=== PATIENT | female | born 1965 | race Caucasian/White ===

== ENCOUNTER 2016-09-05 11:12 | Outpatient (CLI) | payer MEDICAID | END 2016-09-05 11:13 | disposition home or self-care (01) | DX: N60.12 Diffuse cystic mastopathy of left breast (principal) ==

== ENCOUNTER 2016-10-13 22:08 | Emergency (ER) | payer MEDICAID ==
[2016-10-13 22:15] VITALS: BP 151/102
--- NOTE | 2016-10-13 22:21 | ED Physician Documentation ---
PD HPI SKIN - Stated complaint Stated Complaint: RASH - Chief complaint Chief Complaint: Heent - History obtained from History obtained from: Patient - History of Present Illness Timing - onset: Yesterday Timing - details: Gradual onset Location: Face Quality / character: Painful Associated symptoms: No: Fever Similar symptoms before: Has not had sx before Recently seen: Not recently seen - Additional information Additional information: c/o painful rash to left side of face since yesterday, called a medical advice hotline and was advised to go to ED. she denies eye pain or visual changes Review of Systems Constitutional: denies: Fever Eyes: reports: Reviewed and negative Skin: reports: Rash PD PAST MEDICAL HISTORY - Past Medical History Psych: Depression, Anxiety Musculoskeletal: Chronic back pain - Past Surgical History Past Surgical History: Yes - Present Medications Home Medications: Ambulatory Orders Medication Instructions Recorded Confirmed Clonazepam 2 mg PO TID PRN 11/27/15 10/13/16 FLUoxetine [PROzac] 30 mg PO DAILY 11/27/15 10/13/16 Hydrocodone/Acetaminophen [Vicodin 1 - 2 tab PO Q4HR PRN 11/27/15 10/13/16 5-300 mg Tablet] Acyclovir 800 mg PO 5XD #34 tablet 10/13/16 Cyclobenzaprine [Flexeril] 10 mg PO Q8HR 10/13/16 10/13/16 - Allergies Allergies/Adverse Reactions: Allergies Allergy/AdvReac Type Severity Reaction Status Date / Time No Known Drug Allergies Allergy Verified 10/13/16 22:15 - Social History Does the pt smoke?: Yes Smoking Status: Current every day smoker Does the pt drink ETOH?: Yes Does the pt have substance abuse?: No - Immunizations Immunizations are current?: Yes - POLST Patient has POLST: No PD ED PE NORMAL - Vitals Vital signs reviewed: Yes - General General: Alert and oriented X 3, No acute distress, Well developed/nourished - HEENT HEENT: PERRL, EOMI PD ED PE EXPANDED - Eyes Eyes: Normal eyelids, Nl conjunctiva/sclera - Derm Derm: Rash (clusters of erythematous vesicles in distribution of left CN V1) Results - Vitals Vitals: Vital Signs - 24 hr 10/13/16 22:11 Temperature 36.8 C Heart Rate 104 H Respiratory 20 Rate Blood Pressure 151/102 H O2 Saturation 98 Oxygen O2 Source Room air PD MEDICAL DECISION MAKING - ED course Complexity details: considered differential, d/w patient ED course: rash that is in CN V1, left (does not cross midline), strongly s/o herpes zoster Departure - Departure Disposition: 01 Home, Self Care Clinical Impression: Shingles Qualifiers: Herpes zoster complications: without complications Qualified Code(s): B02.9 - Zoster without complications Condition: Good Instructions: ED Shingles Follow-Up: Nayla Campbell ARNP [Primary Care Provider] - Prescriptions: Acyclovir 800 mg PO 5XD #34 tablet Discharge Date/Time: 10/13/16 22:58
[2016-10-13] MEDS ORDERED: ACYCLOVIR 200 MG CAPSULE PO STA (22:37)
[2016-10-13] MEDS ORDERED: ACYCLOVIR 200 MG CAPSULE PO ONE (22:51)
== END 2016-10-13 22:58 | disposition home or self-care (01) ==
LOC: ED 22:08
DX: B02.9 Zoster without complications (principal); F17.200 Nicotine dependence, unspecified, uncomplicated
CPT/HCPCS: 99283; A9270

== ENCOUNTER 2016-11-26 13:19 | Emergency (ER) | payer MEDICAID ==
--- NOTE | 2016-11-26 14:41 | ED Physician Documentation ---
PD HPI HEAD INJURY - Stated complaint Stated Complaint: HEAD INJ - Chief complaint Chief Complaint: Neuro - History obtained from History obtained from: Patient - History of Present Illness Mechanism of head injury: Fell Where head injury occurred: Home Timing - onset: Last night Location of injury: Right Quality of pain: Pain, Throbbing, Aching Associated symptoms: LOC, AMS (she does not remember the fall, but had blood on step and board was broken/rotted, so presume mechanical fall. She had felt okay earlier in the day. Today neighbor/friend found her on floor in laundry room, confused and with headache.) Symptoms worsen with: Palpation, Movement Contributing factors: No: Anticoagulated, Intoxicated Similar symptoms before: Has not had sx before Recently seen: Not recently seen Review of Systems Constitutional: denies: Fever Nose: denies: Rhinorrhea / runny nose, Congestion Throat: denies: Sore throat Cardiac: denies: Chest pain / pressure Respiratory: denies: Cough GI: reports: Nausea. denies: Abdominal Pain, Vomiting, Diarrhea Skin: reports: Laceration (s) (right parietal area without bleeding right now.) . denies: Rash, Lesions Musculoskeletal: reports: Neck pain. denies: Back pain, Extremity pain, Extremity swelling Neurologic: reports: Confused, Altered mental status (feels off balance today as well), Headache, Head injury. denies: Generalized weakness, Focal weakness, Numbness Endocrine: denies: Weight loss, Easy bruising / bleeding Immunocompromised: denies: Immunocompromised PD PAST MEDICAL HISTORY - Past Medical History Past Medical History: Yes Cardiovascular: None Neuro: None Endocrine/Autoimmune: None GI: None Psych: Depression, Anxiety Musculoskeletal: Chronic back pain - Past Surgical History Past Surgical History: Yes - Present Medications Home Medications: Ambulatory Orders Medication Instructions Recorded Confirmed Clonazepam 2 mg PO TID PRN 11/27/15 11/26/16 FLUoxetine [PROzac] 30 mg PO DAILY 11/27/15 11/26/16 Hydrocodone/Acetaminophen [Vicodin 1 - 2 tab PO Q4HR PRN 11/27/15 11/26/16 5-300 mg Tablet] Cyclobenzaprine [Flexeril] 10 mg PO Q8HR 10/13/16 11/26/16 - Allergies Allergies/Adverse Reactions: Allergies Allergy/AdvReac Type Severity Reaction Status Date / Time No Known Drug Allergies Allergy Verified 11/26/16 14:49 - Social History Does the pt smoke?: Yes Smoking Status: Current every day smoker Does the pt drink ETOH?: Yes Does the pt have substance abuse?: No - Family History Family history: denies: Cerebral aneurysm - Immunizations Immunizations are current?: Yes - POLST Patient has POLST: No PD ED PE NORMAL - Vitals Vital signs reviewed: Yes - General General: Alert and oriented X 3, Well developed/nourished - HEENT HEENT: PERRL, EOMI, Pharynx benign, Other (right parietal area with swelling and tenderness, 2 cm laceration with edges close together and no bleeding. ) - Neck Neck: Supple, no meningeal sign, No adenopathy, Other (some tenderness paracervical muscles. ) - Cardiac Cardiac: RRR, No murmur - Respiratory Respiratory: Clear bilaterally - Abdomen Abdomen: Soft, Non tender - Back Back: No CVA TTP, No spinal TTP - Derm Derm: Normal color, Warm and dry - Extremities Extremities: No tenderness to palpate, Normal ROM s pain - Neuro Neuro: Alert and oriented X 3, automatic buffing wheel former 2-12 intact, No motor deficit, No sensory deficit, Normal speech, Other - Psych Psych: Normal mood Results - Vitals Vitals: Vital Signs - 24 hr 11/26/16 13:31 Temperature 36.3 C L Heart Rate 113 H Respiratory 16 Rate Blood Pressure 152/90 H O2 Saturation 98 Oxygen O2 Source Room air - Rads (name of study) cervical spine Radiology: Prelim report reviewed (congenital fusion, no acute fractures) head CT Radiology: Prelim report reviewed (right parietal subarachnoid hemorrhage. ), Discussed with rads PD MEDICAL DECISION MAKING - ED course Complexity details: reviewed results, considered differential (concussion and will get CT to eval for bleeding/etc. ), d/w patient, d/w management consultant (Dr. Vang , trauma at [facility]) Departure - Departure Disposition: 02 Transfer Acute Care Hosp Clinical Impression: Subarachnoid hemorrhage, traumatic Qualifiers: Encounter type: initial encounter Loss of consciousness presence/duration: with LOC of unspecified duration Qualified Code(s): S06.6X9A - Traumatic subarachnoid hemorrhage with loss of consciousness of unspecified duration, initial encounter Concussion Qualifiers: Encounter type: initial encounter Loss of consciousness presence/duration: with LOC of unspecified duration Qualified Code(s): S06.0X9A - Concussion with loss of consciousness of unspecified duration, initial encounter Scalp laceration Qualifiers: Encounter type: initial encounter Qualified Code(s): S01.01XA - Laceration without foreign body of scalp, initial encounter Condition: Stable Record reviewed to determine appropriate education?: Yes
[2016-11-26] MEDS ORDERED: HYDROcod/ACETAM 5/325 MG TABLET PO STA (15:02)
[2016-11-26] MEDS ORDERED: ONDANSETRON ODT 4 MG TABLET TL STA (15:02)
[2016-11-26] MEDS ORDERED: HYDROcod/ACETAM 5/325 MG TABLET ONE (15:22)
[2016-11-26] MEDS ORDERED: ONDANSETRON ODT 4 MG TABLET ONE (15:22)
--- NOTE | 2016-11-26 15:43 | CT Preliminary Report ---
Exam: CT Cervical Spine W/O IMPRESSION: 1. Developmental fusion, C5-C6. 2. Mild degenerative disk disease at C4-C5. 3. Severe degenerative disk disease at C6-C7 with severe right foraminal narrowing. [facility] SITE ID: [id number]
--- NOTE | 2016-11-26 15:46 | CT Report ---
EXAM: CT CERVICAL SPINE WITHOUT CONTRAST DATE: 11/26/2016 03:21 PM HISTORY: Fall, with head/neck injury. COMPARISONS: None. TECHNIQUE: Thin-section axial images were acquired of the cervical spine without contrast. Post-proce ssing: Coronal and sagittal reformats. Other: None. In accordance with CT protocol optimization, one or more of the following dose reduction techniques w ere utilized for this exam: automated exposure control, adjustment of mA and/or KV based on patient s ize, or use of iterative reconstructive technique. FINDINGS: Alignment: Normal. No scoliosis or spondylolisthesis. Bones: Developmental fusion, C5-C6. No traumatic or destructive bone abnormalities. Interspace Levels/Facets: C1-C2: Unremarkable. C2-C3: Unremarkable. C3-C4: Unremarkable. C4-C5: Mild disk space narrowing with posterior disk/osteophyte protrusion.. C5-C6: Developmental fusion. C6-C7: Advanced disk space narrowing with endplate spurring and posterior disk/osteophyte protrusion. Severe right foraminal narrowing. C7-T1: Unremarkable. Musculature: Normal. No fatty atrophy. Other: The paravertebral and prevertebral soft tissues are normal. The lung apices are clear. IMPRESSION: 1. Developmental fusion, C5-C6. 2. Mild degenerative disk disease at C4-C5. 3. Severe degenerative disk disease at C6-C7 with severe right foraminal narrowing. [facility] Referring Provider Line: [phone] SITE ID: [id number]
--- NOTE | 2016-11-26 15:57 | CT Preliminary Report ---
Exam: CT Head W/O IMPRESSION: 1. Acute subarachnoid predominant right-sided hemorrhage extending into the sylvian fissure and noted in the right frontal and temporal regions. 2. No infarct or midline shift. [facility] The above critical findings were discussed with Ap by Dr. Cha Montano at 15:56 hrs on 11/26. SITE ID: [id number]
--- NOTE | 2016-11-26 16:09 | CT Report ---
EXAM: CT HEAD EXAM DATE: 11/26/2016 03:21 PM. CLINICAL HISTORY: Fall, head injury concussion yesterday. COMPARISON: None. TECHNIQUE: Multiaxial CT images were obtained from the foramen magnum to the vertex. IV contrast: Non e. Reformats: Coronal. In accordance with CT protocol optimization, one or more of the following dose reduction techniques w ere utilized for this exam: automated exposure control, adjustment of mA and/or KV based on patient s ize, or use of iterative reconstructive technique. FINDINGS: Parenchyma: No intraparenchymal hemorrhage. No evidence of mass, midline shift, or CT findings of inf arction. Jones-white differentiation is distinct. Extraaxial Spaces: Acute right-sided predominant subarachnoid hemorrhage extending into the sylvian f issure and noted in the right temporal and parietal regions. Ventricles: Normal in size and position. No intraventricular hemorrhage. Sinuses: Imaged paranasal sinuses, orbits, and mastoids show no significant abnormality. Bones: No evidence of fracture or calvarial defect. Other: Right temporal scalp swelling. IMPRESSION: 1. Acute subarachnoid predominant right-sided hemorrhage extending into the sylvian fissure and noted in the right frontal and temporal regions. 2. No infarct or midline shift. [facility] The above critical findings were discussed with Ap by Dr. Cha Montano at 15:56 hrs on 11/26. Referring Provider Line: [phone] SITE ID: [id number]
[2016-11-26] MEDS ORDERED: clonazePAM 0.5 MG TABLET PO STA (16:11)
[2016-11-26] MEDS ORDERED: clonazePAM 0.5 MG TABLET PO ONE (16:13)
[2016-11-26 17:24] VITALS: BP 132/84
== END 2016-11-26 17:26 | disposition short-term general hospital (02) ==
LOC: ED 13:19
DX: S06.6X9A Traumatic subarachnoid hemorrhage with loss of consciousness of unspecified duration, initial encounter (principal); S01.01XA Laceration without foreign body of scalp, initial encounter; W18.30XA Fall on same level, unspecified, initial encounter; Y92.007 Garden or yard of unspecified non-institutional (private) residence as the place of occurrence of the external cause; F17.200 Nicotine dependence, unspecified, uncomplicated
CPT/HCPCS: 70450; 72125; 99284; 99285; A9270; Q0162

== ENCOUNTER 2016-11-26 17:25 | Outpatient (CLI) | payer MEDICAID | END 2016-11-26 17:26 | disposition short-term general hospital (02) | LOC: EMS 17:25 | PROVIDERS: ATTEND Surgery | DX: S06.6X9A Traumatic subarachnoid hemorrhage with loss of consciousness of unspecified duration, initial encounter (principal) | CPT/HCPCS: A0425; A0426 ==

== ENCOUNTER 2016-12-10 12:30 | Outpatient (CLI) | payer MEDICAID ==
[2016-12-10 18:46] LABS: HCG UR QUAL NEGATIVE
== END 2016-12-10 12:31 | disposition home or self-care (01) ==
LOC: LAB.R 12:30
PROVIDERS: ATTEND Nurse Practitioner Family
DX: R14.0 Abdominal distension (gaseous) (principal); N92.6 Irregular menstruation, unspecified
CPT/HCPCS: 81025

== ENCOUNTER 2016-12-11 15:21 | Outpatient (CLI) | payer MEDICAID ==
--- NOTE | 2016-12-12 09:24 | XRAY Report ---
THREE-VIEW LEFT FOOT: 12/11/2016 CLINICAL INDICATION: Fall, pain. FINDINGS: AP, lateral, oblique views of the left foot demonstrate no evidence of acute fracture. Th e joint spaces are preserved. A bone island is incidentally noted in the middle phalanx of the 2nd t oe. No radiopaque foreign body is seen in the soft tissues. IMPRESSION: NO EVIDENCE OF FRACTURE. JOB #: [id number] EXT JOB #:[id number]
== END 2016-12-11 15:22 | disposition home or self-care (01) ==
LOC: DI.S 15:21
PROVIDERS: ATTEND Nurse Practitioner Family
DX: M79.672 Pain in left foot (principal); W10.8XXD Fall (on) (from) other stairs and steps, subsequent encounter

== ENCOUNTER 2016-12-12 12:47 | Outpatient (CLI) | payer MEDICAID ==
[2016-12-12 17:43] LABS: HCG UR QUAL NEGATIVE
[2016-12-12 18:02] LABS: BASOPHILS # (AUTO) 0.1 10^3/uL (0.0-0.1); BASOPHILS % (AUTO) 0.7 %; EOSINOPHILS # (AUTO) 0.3 10^3/uL (0.0-0.7); EOSINOPHILS % (AUTO) 3.4 %; HCT - HEMATOCRIT 38.7 % (37.0-47.0); HGB - HEMOGLOBIN 12.8 g/dL (12.0-16.0); LYMPHOCYTES # (AUTO) 1.3 10^3/uL (1.5-3.5); LYMPHOCYTES % (AUTO) 15.1 %; MEAN CORPUSCULAR HEMOGLOBIN 28.9 pg (27.0-31.0); MEAN CORPUSCULAR HGB CONC 33.1 g/dL (32.0-36.0); MEAN CORPUSCULAR VOLUME 87.3 fL (81.0-99.0); MEAN PLATELET VOLUME 8.5 fL (7.9-10.8); MONOCYTES # (AUTO) 0.7 10^3/uL (0.0-1.0); MONOCYTES % (AUTO) 7.8 %; NEUTROPHILS # (AUTO) 6.4 10^3/uL (1.5-6.6); RED BLOOD COUNT 4.43 10^6/uL (4.20-5.40); RED CELL DISTRIBUTION WIDTH 14.2 % (12.0-15.0); UNCORRECTED WHITE BLOOD COUNT 8.8 x10^3/uL; WHITE BLOOD COUNT 8.8 x10^3/uL (4.8-10.8)
[2016-12-12 18:17] LABS: ALBUMIN/GLOBULIN RATIO 1.1 (1.0-2.2); BILIRUBIN,TOTAL 0.5 mg/dL (0.2-1.0); CALCIUM 9.4 mg/dL (8.5-10.3); CREATININE 0.9 mg/dL (0.4-1.0); POTASSIUM 3.8 mmol/L (3.5-5.0); TOTAL PROTEIN 7.4 g/dL (6.7-8.2)
== END 2016-12-12 12:48 | disposition home or self-care (01) ==
LOC: LAB.F 12:47
PROVIDERS: ATTEND Nurse Practitioner Family
DX: R14.0 Abdominal distension (gaseous) (principal)
CPT/HCPCS: 36415; 80053; 81025; 85025

== ENCOUNTER 2016-12-15 20:55 | Emergency (ER) | payer MEDICAID ==
--- NOTE | 2016-12-15 22:47 | ED Physician Documentation ---
History of Present Illness - Stated complaint Stated Complaint: WEAKNESS,HEADACHE - Chief complaint Chief Complaint: Neuro - History obtained from History obtained from: Patient, Family - History of Present Illness Timing: Yesterday - Additonal information Additional information: Patient is a 51 year old female with a history of chronic pain, headachs and a traumatic sah who is presenting to the emergency department for headache and nausea. Patient states that it has been going on for the last few days so she decided to come get checked out. patient did state that she took two percocets , flexeril and clonazapam today. Review of Systems Constitutional: denies: Fever, Chills, Myalgias Eyes: denies: Loss of vision, Decreased vision Ears: denies: Ear pain, Drainage/discharge Nose: denies: Rhinorrhea / runny nose, Congestion Throat: denies: Dental pain / toothache, Sore throat Cardiac: denies: Chest pain / pressure Respiratory: denies: Cough GI: reports: Nausea. denies: Vomiting, Constipation, Diarrhea : denies: Dysuria, Frequency, Hesitancy Skin: denies: Rash, Lesions Musculoskeletal: denies: Neck pain, Back pain, Extremity pain, Joint pain Neurologic: reports: Confused, Headache. denies: Generalized weakness, Numbness , Difficulty speaking, Syncope, Seizure Psychiatric: denies: Depressed, Suicidal Immunocompromised: denies: Immunocompromised PD PAST MEDICAL HISTORY - Past Medical History Cardiovascular: None Neuro: None Endocrine/Autoimmune: None GI: None Psych: Depression, Anxiety Musculoskeletal: Chronic back pain - Past Surgical History Past Surgical History: Yes - Present Medications Home Medications: Ambulatory Orders Medication Instructions Recorded Confirmed Clonazepam 2 mg PO TID PRN 11/27/15 11/26/16 FLUoxetine [PROzac] 30 mg PO DAILY 11/27/15 11/26/16 Hydrocodone/Acetaminophen [Vicodin 1 - 2 tab PO Q4HR PRN 11/27/15 11/26/16 5-300 mg Tablet] Cyclobenzaprine [Flexeril] 10 mg PO Q8HR 10/13/16 11/26/16 Meclizine [Antivert] 12.5 mg PO Q6H #20 tablet 12/15/16 Ondansetron Odt [Zofran] 4 mg TL Q6H PRN #14 tablet 12/15/16 - Allergies Allergies/Adverse Reactions: Allergies Allergy/AdvReac Type Severity Reaction Status Date / Time No Known Drug Allergies Allergy Verified 12/15/16 21:06 - Social History Does the pt smoke?: Yes Smoking Status: Current every day smoker Does the pt drink ETOH?: Yes Does the pt have substance abuse?: No - Immunizations Immunizations are current?: Yes - POLST Patient has POLST: No PD ED PE NORMAL - Vitals Vital signs reviewed: Yes - General General: Alert and oriented X 3, No acute distress, Well developed/nourished - HEENT HEENT: Atraumatic, PERRL, Pharynx benign - Neck Neck: Supple, no meningeal sign, No bony TTP - Cardiac Cardiac: RRR, No murmur - Respiratory Respiratory: No respiratory distress, Clear bilaterally - Abdomen Abdomen: Soft, Non tender, Non distended - Derm Derm: Normal color, Warm and dry, No rash - Extremities Extremities: No deformity, No tenderness to palpate, Normal ROM s pain - Neuro Neuro: Alert and oriented X 3, transportation museum helper 2-12 intact, No motor deficit, No sensory deficit, Normal speech - Psych Psych: Normal mood, Normal affect PD ED PE EXPANDED - HEENT HEENT: Dry mucous membranes Results - Vitals Vitals: Vital Signs - 24 hr 12/15/16 12/16/16 21:06 00:26 Temperature 36.2 C L Heart Rate 98 93 Respiratory 16 16 Rate Blood Pressure 134/93 H 120/72 O2 Saturation 99 97 Oxygen O2 Source Room air - Labs Labs: Laboratory Tests 12/15/16 12/15/16 12/15/16 23:05 23:33 23:33 WBC 9.5 RBC 4.52 Hgb 13.0 Hct 38.8 MCV 85.7 MCH 28.8 MCHC 33.5 RDW 14.2 Plt Count 316 MPV 8.4 Neut # 7.0 H Lymph # 1.3 L Snyder # 1.0 Eos # 0.2 Baso # 0.1 Absolute Nucleated RBC 0.00 Nucleated RBCs 0.0 Sodium 138 Potassium 3.5 Chloride 101 Carbon Dioxide 27 Anion Gap 10.0 BUN 26 H Creatinine 1.0 Estimated GFR (MDRD) 58 L Glucose 111 H Calcium 9.7 Total Bilirubin 0.3 AST 22 ALT 32 Alkaline Phosphatase 73 Total Protein 8.1 Albumin 4.4 Globulin 3.7 Albumin/Globulin Ratio 1.2 Lipase 31 TSH 2.48 Urine Color Urine Clarity Urine pH Ur Specific Warren Urine Protein Urine Glucose (UA) Urine Ketones Urine Occult Blood Urine Nitrite Urine Bilirubin Urine Urobilinogen Ur Leukocyte Esterase Urine RBC Urine WBC Ur Squamous Epith Cells Urine Bacteria Ur Microscopic Review Urine Culture Comments Urine Opiates Screen Ur Oxycodone Screen Urine Methadone Screen Ur Propoxyphene Screen Ur Barbiturates Screen Ur Tricyclics Screen Ur Phencyclidine Scrn Ur Amphetamine Screen U Methamphetamines Scrn U Benzodiazepines Scrn Urine Cocaine Screen U Cannabinoids Screen 12/16/16 00:13 WBC RBC Hgb Hct MCV MCH MCHC RDW Plt Count MPV Neut # Lymph # Snyder # Eos # Baso # Absolute Nucleated RBC Nucleated RBCs Sodium Potassium Chloride Carbon Dioxide Anion Gap BUN Creatinine Estimated GFR (MDRD) Glucose Calcium Total Bilirubin AST ALT Alkaline Phosphatase Total Protein Albumin Globulin Albumin/Globulin Ratio Lipase TSH Urine Color YELLOW Urine Clarity CLEAR Urine pH 6.0 Ur Specific Warren 1.025 Urine Protein NEGATIVE Urine Glucose (UA) NEGATIVE Urine Ketones NEGATIVE Urine Occult Blood SMALL H Urine Nitrite NEGATIVE Urine Bilirubin NEGATIVE Urine Urobilinogen 0.2 (NORMAL) Ur Leukocyte Esterase NEGATIVE Urine RBC 0-5 Urine WBC 0-3 Ur Squamous Epith Cells MANY Squamous H Urine Bacteria None Seen Ur Microscopic Review INDICATED Urine Culture Comments NOT INDICATED Urine Opiates Screen POSITIVE H Ur Oxycodone Screen NEGATIVE Urine Methadone Screen NEGATIVE Ur Propoxyphene Screen NEGATIVE Ur Barbiturates Screen NEGATIVE Ur Tricyclics Screen POSITIVE H Ur Phencyclidine Scrn NEGATIVE Ur Amphetamine Screen NEGATIVE U Methamphetamines Scrn NEGATIVE U Benzodiazepines Scrn POSITIVE H Urine Cocaine Screen NEGATIVE U Cannabinoids Screen NEGATIVE - Rads (name of study) ct head Radiology: Final report received (no acute abnormality) PD MEDICAL DECISION MAKING - ED course Complexity details: reviewed old records, reviewed results, re-evaluated patient , considered differential, d/w patient ED course: Patient was seen and examined at bedside. patient had dry mucus membranes, likely secondary to the diuretic. IV access was gained, labs were drawn and patient was treated with a fluid bolus. CT was ordered due to the previous bleed and headache. When all of the patient's diagnostics came back patient had minimal bump in GFR but had received fluids. patient required no further work up at this time and was stable for discharge with outpatient follow up. Departure - Departure Disposition: 01 Home, Self Care Clinical Impression: Headache Condition: Good Instructions: ED Cephalgia Unspecified Prescriptions: Meclizine [Antivert] 12.5 mg PO Q6H #20 tablet Ondansetron Odt [Zofran] 4 mg TL Q6H PRN #14 tablet PRN Reason: Nausea / Vomiting Comments: Your diagnostics today were within normal limits. You were a little dehydrated from the diuretic and you should decrease the frequency of taking it once every two or three days. You should follow up with your pmd if the swelling returns and to follow up on your pain management. You may return to the emergency department at any time for new, worsening or uncontrollable symptoms.
[2016-12-15] MEDS ORDERED: SODIUM CHLORIDE FLUSH 0.9% 10 ML SYRINGE IVP ONE (22:56)
[2016-12-15] MEDS: SODIUM CHLORIDE 0.9% 1,000 ML IV ONE (23:21)
[2016-12-15 23:24] LABS: BASOPHILS # (AUTO) 0.1 10^3/uL (0.0-0.1); BASOPHILS % (AUTO) 0.8 %; EOSINOPHILS # (AUTO) 0.2 10^3/uL (0.0-0.7); EOSINOPHILS % (AUTO) 1.8 %; HCT - HEMATOCRIT 38.8 % (37.0-47.0); LYMPHOCYTES # (AUTO) 1.3 10^3/uL (1.5-3.5); LYMPHOCYTES % (AUTO) 13.8 %; MEAN CORPUSCULAR HEMOGLOBIN 28.8 pg (27.0-31.0); MEAN CORPUSCULAR HGB CONC 33.5 g/dL (32.0-36.0); MEAN CORPUSCULAR VOLUME 85.7 fL (81.0-99.0); MEAN PLATELET VOLUME 8.4 fL (7.9-10.8); MONOCYTES % (AUTO) 10.6 %; RED BLOOD COUNT 4.52 10^6/uL (4.20-5.40); RED CELL DISTRIBUTION WIDTH 14.2 % (12.0-15.0); UNCORRECTED WHITE BLOOD COUNT 9.5 x10^3/uL; WHITE BLOOD COUNT 9.5 x10^3/uL (4.8-10.8)
--- NOTE | 2016-12-15 23:38 | CT Preliminary Report ---
Exam: CT Head W/O IMPRESSION: No acute or focal intracranial abnormality. [facility] SITE ID: [id number]
--- NOTE | 2016-12-15 23:40 | CT Report ---
EXAM: CT HEAD EXAM DATE: 12/15/2016 11:22 PM. CLINICAL HISTORY: History of bleed, headaches. COMPARISON: None. TECHNIQUE: Multiaxial CT images were obtained from the foramen magnum to the vertex. IV contrast: Non e. Reformats: Coronal. In accordance with CT protocol optimization, one or more of the following dose reduction techniques w ere utilized for this exam: automated exposure control, adjustment of mA and/or KV based on patient s ize, or use of iterative reconstructive technique. FINDINGS: Parenchyma: No intraparenchymal hemorrhage. No evidence of mass, midline shift, or CT findings of inf arction. Jones-white differentiation is distinct. Extraaxial Spaces: Normal for age. No subdural or epidural collections identified. Ventricles: Normal in size and position. Sinuses: Imaged paranasal sinuses, orbits, and mastoids show no significant abnormality. Bones: No evidence of fracture or calvarial defect. Other: None. IMPRESSION: No acute or focal intracranial abnormality. [facility] Referring Provider Line: [phone] SITE ID: [id number]
[2016-12-15 23:51] LABS: ALBUMIN/GLOBULIN RATIO 1.2 (1.0-2.2); BILIRUBIN,TOTAL 0.3 mg/dL (0.2-1.0); CALCIUM 9.7 mg/dL (8.5-10.3); POTASSIUM 3.5 mmol/L (3.5-5.0); TOTAL PROTEIN 8.1 g/dL (6.7-8.2)
[2016-12-16 00:26] VITALS: BP 120/72
[2016-12-16 00:31] LABS: BILIRUBIN,URINE NEGATIVE (NEGATIVE)
[2016-12-16 00:44] LABS: UA w/ MICROSCOPIC CHARGE YES; UR CULTURE IF IND NOT INDICATED; WBC,URINE 0-3 /HPF (0-5)
== END 2016-12-16 01:19 | disposition home or self-care (01) ==
LOC: ED 20:55
DX: R51 Headache (principal); R53.1 Weakness; R11.0 Nausea; F17.200 Nicotine dependence, unspecified, uncomplicated
CPT/HCPCS: 36415; 70450; 80053; 80306; 81001; 81003; 83690; 84443; 85025; 87086; 99283

== ENCOUNTER 2017-01-24 10:39 | Outpatient (CLI) | payer MEDICAID | END 2017-01-24 10:40 | disposition home or self-care (01) | LOC: LAB.R 10:39 | PROVIDERS: ATTEND Nurse Practitioner Family | DX: J02.9 Acute pharyngitis, unspecified (principal) | CPT/HCPCS: 87070 ==

== ENCOUNTER 2017-12-16 14:13 | Outpatient (CLI) | payer MEDICAID ==
[2017-12-16 17:50] LABS: BASOPHILS # (AUTO) 0.1 10^3/uL (0.0-0.1); BASOPHILS % (AUTO) 0.8 %; EOSINOPHILS # (AUTO) 0.2 10^3/uL (0.0-0.7); EOSINOPHILS % (AUTO) 2.7 %; HGB - HEMOGLOBIN 14.2 g/dL (12.0-16.0); LYMPHOCYTES # (AUTO) 1.4 10^3/uL (1.5-3.5); LYMPHOCYTES % (AUTO) 18.4 %; MEAN CORPUSCULAR HEMOGLOBIN 29.6 pg (27.0-31.0); MEAN CORPUSCULAR HGB CONC 33.7 g/dL (32.0-36.0); MEAN CORPUSCULAR VOLUME 87.9 fL (81.0-99.0); MEAN PLATELET VOLUME 9.4 fL (7.9-10.8); MONOCYTES # (AUTO) 0.6 10^3/uL (0.0-1.0); MONOCYTES % (AUTO) 8.2 %; NEUTROPHILS # (AUTO) 5.2 10^3/uL (1.5-6.6); NEUTROPHILS % (AUTO) 69.9 %; PLT - PLATELET COUNT 265 10^3/uL (130-450); RED CELL DISTRIBUTION WIDTH 14.5 % (12.0-15.0); WHITE BLOOD COUNT 7.5 x10^3/uL (4.8-10.8)
[2017-12-16 19:05] LABS: ALBUMIN 4.4 g/dL (3.2-5.5); ALBUMIN/GLOBULIN RATIO 1.3 (1.0-2.2); BILIRUBIN,TOTAL 0.7 mg/dL (0.2-1.0); CALCIUM 8.5 mg/dL (8.5-10.3); CREATININE 0.8 mg/dL (0.4-1.0); TOTAL PROTEIN 7.9 g/dL (6.7-8.2)
== END 2017-12-16 14:14 | disposition home or self-care (01) ==
LOC: LAB.F 14:13
PROVIDERS: ATTEND Nurse Practitioner Family
DX: R07.89 Other chest pain (principal); R53.83 Other fatigue
CPT/HCPCS: 36415; 80050; 83721

== ENCOUNTER 2018-01-23 12:28 | Outpatient (CLI) | payer MEDICAID ==
[2018-01-23] MEDS ORDERED: REGADENOSON 0.4 MG/5 ML SYRINGE IVP ONE ×2 (15:44→18:40)
--- NOTE | 2018-01-23 17:57 | CARDIAC PROCEDURE NOTE ---
DATE OF SERVICE: 01/23/2018 Physician: Jodie Velazquez MD INDICATIONS FOR TEST: Chest pain, dyspnea on exertion. CORONARY RISK FACTORS: Hypertension, family history of heart disease, smoker, postmenopausal status. After signing informed consent, the patient underwent a Lexiscan pharmaceutical stress test with myocardial perfusion imaging. BASELINE EKG: Normal sinus rhythm, ST segment scooping depressions in leads II, III and aVF. Lexiscan infused per protocol. The patient had no symptoms or side effects. Resting heart rate 86, peak heart rate 102. Resting blood pressure 128/84, peak blood pressure 146/80. EKG at [facility]: No new EKG changes. SUMMARY: Indeterminate for ischemia by EKG due to pharmaceutical stress test and baseline abnormal EKG. Nuclear images reported separately. cc: VIV Anaya TD: 01/23/2018 16:23 MTDD
--- NOTE | 2018-01-24 15:24 | Nuclear Medicine Report ---
Reason: CHEST PAIN, FREEMAN Procedure Date: 01/23/2018 Accession Number: [id number] / [id number] Procedure: NM - Myocardial Perfusion STR/RST CPT Code: FULL RESULT: EXAM: SINGLE-ISOTOPE PHARMACOLOGICAL STRESS TEST WITH REGADENOSON. SINGLE-ISOTOPE AND ONE-DAY REST/STRESS MYOCARDIAL PERFUSION SCANS WITH TOMOGRAPHIC IMAGING, QUANTITATIVE ANALYSIS, WALL MOTION ANALYSIS AND CALCULATION OF EJECTION FRACTION. EXAM DATE: 01/23/2018 01:49 PM. CLINICAL HISTORY: CHEST PAIN, FREEMAN. COMPARISON: None. TECHNIQUE: After the intravenous administration of 9.4 mCi of Tc-99m sestamibi, a rest myocardial perfusion scan was done with tomography. Motion correction was applied when appropriate. After an appropriate delay, pharmacological stress was performed with the infusion of 0.4 mg regadenoson per protocol. According to protocol, 36.1 mCi of Tc-99m sestamibi was injected for stress myocardial perfusion scan. Motion correction was applied when appropriate. Gated tomographic images were obtained for wall motion analysis and computation of left ventricular ejection fraction. FINDINGS: Perfusion images: Left ventricular chamber size is normal at rest and unchanged at stress. There is a moderate size region of mildly to moderately reduced uptake involving the apical half of the anterior wall which is similar on stress and rest images without focal wall motion abnormality on gated images, most likely breast attenuation artifact. Otherwise no convincing fixed perfusion deficits. No convincing reversible perfusion deficits. Gated images: No focal wall motion abnormality. Calculated left ventricular EDV 72 mL, ESV 16 mL. The left ventricular ejection fraction is estimated at 77% (normal > 50%). IMPRESSION: 1. No convincing reversible perfusion deficits to indicate stress-induced ischemia. 2. No convincing fixed perfusion deficits. Probable apical half anterior wall breast attenuation artifact. 3. Left ventricular ejection fraction of 77% (normal > 50%). 4. No focal wall motion abnormalities. [facility]
== END 2018-01-23 12:29 | disposition home or self-care (01) ==
LOC: DI 12:28
PROVIDERS: ATTEND Nurse Practitioner Family
DX: R07.89 Other chest pain (principal); R06.09 Other forms of dyspnea
CPT/HCPCS: 78452; 93017; A9500; J2785

== ENCOUNTER 2018-05-06 12:54 | Outpatient (CLI) | payer MEDICAID | END 2018-05-06 12:55 | disposition home or self-care (01) | LOC: DI 12:54 | PROVIDERS: ATTEND Nurse Practitioner | DX: R00.2 Palpitations (principal); R06.09 Other forms of dyspnea | CPT/HCPCS: 93306 ==

== ENCOUNTER 2018-05-29 12:53 | Outpatient (CLI) | payer MEDICAID ==
[2018-05-29 18:33] LABS: BASOPHILS # (AUTO) 0.1 10^3/uL (0.0-0.1); BASOPHILS % (AUTO) 0.8 %; EOSINOPHILS # (AUTO) 0.2 10^3/uL (0.0-0.7); EOSINOPHILS % (AUTO) 2.4 %; HGB - HEMOGLOBIN 14.4 g/dL (12.0-16.0); LYMPHOCYTES # (AUTO) 1.4 10^3/uL (1.5-3.5); LYMPHOCYTES % (AUTO) 19.4 %; MEAN CORPUSCULAR HEMOGLOBIN 29.2 pg (27.0-31.0); MEAN CORPUSCULAR HGB CONC 32.8 g/dL (32.0-36.0); MEAN CORPUSCULAR VOLUME 89.1 fL (81.0-99.0); MEAN PLATELET VOLUME 9.4 fL (7.9-10.8); MONOCYTES # (AUTO) 0.5 10^3/uL (0.0-1.0); MONOCYTES % (AUTO) 7.1 %; NEUTROPHILS # (AUTO) 5.2 10^3/uL (1.5-6.6); NEUTROPHILS % (AUTO) 70.3 %; PLT - PLATELET COUNT 297 10^3/uL (130-450); RED BLOOD COUNT 4.92 10^6/uL (4.20-5.40); RED CELL DISTRIBUTION WIDTH 13.9 % (12.0-15.0); WHITE BLOOD COUNT 7.4 x10^3/uL (4.8-10.8)
[2018-05-29 20:19] LABS: ALBUMIN 4.7 g/dL (3.2-5.5); ALBUMIN/GLOBULIN RATIO 1.3 (1.0-2.2); ALKALINE PHOSPHATASE 68 IU/L (42-121); ALT ALANINE AMINOTRANSFERASE 49 IU/L (10-60); AST ASPARTATE AMINOTRANSFERASE 29 IU/L (10-42); BILIRUBIN,TOTAL 0.5 mg/dL (0.2-1.0); BUN - BLOOD UREA NITROGEN 19 mg/dL (6-20); CALCIUM 9.5 mg/dL (8.5-10.3); CARBON DIOXIDE - CO2 23 mmol/L (21-32); CHLORIDE 105 mmol/L (101-111); CHOL/HDL RATIO 3.4 (<4.4); CHOLESTEROL 257 mg/dL; CREATININE 0.9 mg/dL (0.4-1.0); GFR - MDRD 66 (>89); GLUCOSE 108 mg/dL (70-100); HDL CHOLESTEROL 75 mg/dL; LDL CHOLESTEROL,CALCULATED 162 mg/dL; LDL/HDL RATIO 2.2 (<4.4); SODIUM 137 mmol/L (135-145); TOTAL PROTEIN 8.3 g/dL (6.7-8.2); VLDL CHOLESTEROL 20 mg/dL
== END 2018-05-29 12:54 | disposition home or self-care (01) ==
LOC: LAB.F 12:53
PROVIDERS: ATTEND Nurse Practitioner Family
DX: F32.9 Major depressive disorder, single episode, unspecified (principal); F41.9 Anxiety disorder, unspecified; Z13.6 Encounter for screening for cardiovascular disorders; R00.2 Palpitations
CPT/HCPCS: 36415; 80050; 80061; 83721

== ENCOUNTER 2018-07-22 14:30 | Outpatient (CLI) | payer MEDICAID ==
[2018-07-22 18:23] LABS: HB2 TOTAL 15.1 g/dL; HEMOGLOBIN A1C 0.63 g/dL
== END 2018-07-22 14:31 | disposition home or self-care (01) ==
LOC: LAB.F 14:30
PROVIDERS: ATTEND Nurse Practitioner
DX: R73.9 Hyperglycemia, unspecified (principal); Z83.3 Family history of diabetes mellitus
CPT/HCPCS: 36415; 83036

== ENCOUNTER 2019-05-28 13:34 | Outpatient (CLI) | payer MEDICAID ==
[2019-05-28 18:27] LABS: BASOPHILS # (AUTO) 0.1 10^3/uL (0.0-0.1); BASOPHILS % (AUTO) 1.1 %; EOSINOPHILS # (AUTO) 0.2 10^3/uL (0.0-0.7); EOSINOPHILS % (AUTO) 3.1 %; HGB - HEMOGLOBIN 14.2 g/dL (12.0-16.0); LYMPHOCYTES # (AUTO) 1.4 10^3/uL (1.5-3.5); LYMPHOCYTES % (AUTO) 23.6 %; MEAN CORPUSCULAR HEMOGLOBIN 29.8 pg (27.0-31.0); MEAN CORPUSCULAR VOLUME 93.1 fL (81.0-99.0); MEAN PLATELET VOLUME 11.1 fL (7.9-10.8); MONOCYTES # (AUTO) 0.6 10^3/uL (0.0-1.0); MONOCYTES % (AUTO) 9.7 %; NEUTROPHILS # (AUTO) 3.8 10^3/uL (1.5-6.6); NEUTROPHILS % (AUTO) 61.8 %; PLT - PLATELET COUNT 279 10^3/uL (130-450); RED BLOOD COUNT 4.77 10^6/uL (4.20-5.40); RED CELL DISTRIBUTION WIDTH 13.2 % (12.0-15.0); WHITE BLOOD COUNT 6.1 x10^3/uL (4.8-10.8)
[2019-05-28 18:29] LABS: HB2 TOTAL 14.4 g/dL; HEMOGLOBIN A1C 0.55 g/dL; HEMOGLOBIN A1C % 5.6 % (4.6-6.2)
[2019-05-28 18:45] LABS: ALBUMIN 4.6 g/dL (3.2-5.5); ALBUMIN/GLOBULIN RATIO 1.4 (1.0-2.2); ALKALINE PHOSPHATASE 84 IU/L (42-121); ALT ALANINE AMINOTRANSFERASE 76 IU/L (10-60); AST ASPARTATE AMINOTRANSFERASE 49 IU/L (10-42); BILIRUBIN,TOTAL 0.5 mg/dL (0.2-1.0); BUN - BLOOD UREA NITROGEN 26 mg/dL (6-20); CALCIUM 9.5 mg/dL (8.5-10.3); CARBON DIOXIDE - CO2 22 mmol/L (21-32); CHLORIDE 108 mmol/L (101-111); CHOL/HDL RATIO 4.9 (<4.4); CHOLESTEROL 341 mg/dL; CREATININE 1.1 mg/dL (0.4-1.0); GFR - MDRD 52 (>89); GLUCOSE 120 mg/dL (70-100); HDL CHOLESTEROL 69 mg/dL; LDL CHOLESTEROL,CALCULATED 240 mg/dL; LDL/HDL RATIO 3.5 (<4.4); SODIUM 140 mmol/L (135-145); VLDL CHOLESTEROL 32 mg/dL
== END 2019-05-28 13:35 | disposition home or self-care (01) ==
LOC: LAB.S 13:34
PROVIDERS: ATTEND Physician Assistant Medical
DX: E78.2 Mixed hyperlipidemia (principal); Z51.81 Encounter for therapeutic drug level monitoring; R73.01 Impaired fasting glucose; Z79.899 Other long term (current) drug therapy
CPT/HCPCS: 36415; 80053; 80061; 83036; 83721; 85025

== ENCOUNTER 2019-10-19 08:00 | Outpatient (CLI) | payer MEDICAID ==
--- NOTE | 2019-10-19 18:18 | XRAY Report ---
PROCEDURE: Shoulder 3 View LT INDICATIONS: FROZEN LEFT SHOULDER TECHNIQUE: 3 views of the shoulder were acquired. COMPARISON: None. FINDINGS: Bones: Mild to moderate osteoarthritic changes in acromioclavicular joint and glenohumeral joint are seen. No fractures or dislocations. No suspicious bony lesions. Visualized ribs appear intact. Soft tissues: No suspicious soft tissue calcifications. IMPRESSION: Mild to moderate left shoulder joint osteoarthritis. No fracture or dislocation. Reviewed by: Fritz Barnett MD on 10/19/2019 6:16 PM PDT Approved by: Fritz Barnett MD on 10/19/2019 6:16 PM PDT Station ID: [id number]
== END 2019-10-19 23:59 | disposition home or self-care (01) ==
LOC: DI.S 08:00
PROVIDERS: ATTEND Physician Assistant
DX: M19.012 Primary osteoarthritis, left shoulder (principal)

== ENCOUNTER 2019-12-15 13:11 | Outpatient (CLI) | payer MEDICAID ==
[2019-12-15] MEDS ORDERED: BUFFERED LIDOCAINE 10 ML SYRINGE ONE (13:26)
[2019-12-15] MEDS ORDERED: ROPIVACAINE 0.5% PF 20 ML AMPULE ONE (13:27)
[2019-12-15] MEDS ORDERED: TRIAMCINOLONE 40 MG/ML VIAL ONE (13:27)
[2019-12-15] MEDS ORDERED: ROPIVACAINE 0.5% PF 20 ML AMPULE EP ONE (14:25)
[2019-12-15] MEDS ORDERED: iohexoL-240 10 ML VIAL IVP ONE (14:26)
[2019-12-15] MEDS ORDERED: BUFFERED LIDOCAINE 10 ML SYRINGE IU ONE (14:26)
[2019-12-15] MEDS ORDERED: TRIAMCINOLONE 40 MG/ML VIAL IM ONE (14:27)
--- NOTE | 2019-12-17 08:58 | XRAY Report ---
PROCEDURE: Inj/Aspiration Major Joint INDICATIONS: FROZEN LEFT SHOULDER CONTRAST: CONTRAST: OMNIPAQUE FLUORO TIME: FLUORO TIME: 0.2 MIN and NUMBER IMAGES: 2 TECHNIQUE: The indications, alternatives, benefits, risks, and complications of the procedure were explained to the patient. Written informed consent was obtained and placed in the chart. The patient was placed in an appropriate position on the fluoroscopy table, and a site was chosen for percutaneous access un yessica fluoroscopic guidance. Local anesthetic was administered using a 1% lidocaine solution. A hypod ermic or spinal needle was then used to access the symptomatic joint. Intra-articular location of th e needle tip was confirmed by injecting a small amount of contrast, followed by steroid administratio n. The needle was then withdrawn, and a bandage applied to the puncture site. FINDINGS: Joint injected: Left glenohumeral joint Medications injected: 1 mL of 40 mg/mL Kenalog and 3 mL 0.5% Ropivacaine mixture. Complications: None. IMPRESSION: Successful fluoroscopically guided administration of steroid and anaesthetic solution into the left g lenohumeral joint. Reviewed by: Vibha Gates MD, PhD on 12/16/2019 8:32 AM PDT Approved by: Vibha Gates MD, PhD on 12/16/2019 8:32 AM PDT Station ID: [id number]
== END 2019-12-15 13:12 | disposition home or self-care (01) ==
LOC: DI 13:11
PROVIDERS: ATTEND Orthopaedic Surgery
DX: M75.02 Adhesive capsulitis of left shoulder (principal)
CPT/HCPCS: 20610; 77002

== ENCOUNTER 2019-12-30 14:14 | Outpatient (CLI) | payer MEDICAID | END 2019-12-30 14:15 | disposition home or self-care (01) | LOC: COV 14:14 | PROVIDERS: ATTEND Family Medicine | DX: R05 Cough (principal); R53.83 Other fatigue; R68.83 Chills (without fever); J02.9 Acute pharyngitis, unspecified; R11.0 Nausea; Z20.828 Contact with and (suspected) exposure to other viral communicable diseases ==

== ENCOUNTER 2020-02-12 08:00 | Outpatient (CLI) | payer MEDICAID ==
--- NOTE | 2020-02-12 21:07 | XRAY Report ---
PROCEDURE: Cervical Spine 2 View INDICATIONS: NECK PAIN TECHNIQUE: 4 view(s) of the cervical spine were acquired. COMPARISON: None. FINDINGS: Bones: No fractures or dislocations to the C7 level. The lateral masses of C1 appear intact on the odontoid view. No suspicious bony lesions. C1-C2 relationship is preserved. There is near complete osseous fusion of C5 and C6. Moderate degenerative changes at C6-7. AP dimension of the vertebral bod ies of C5 and C6 appear smaller and may be congenital in etiology. Soft tissues: No prevertebral soft tissue swelling. IMPRESSION: Cervical spine without acute fracture or dislocation. Near complete osseous fusion of C5 and C6. Moderate degenerative changes at C6-7. Reviewed by: Tez Callahan MD on 02/12/2020 9:06 PM PDT Approved by: Tez Callahan MD on 02/12/2020 9:06 PM PDT Station ID: [id number]
--- NOTE | 2020-02-12 21:24 | XRAY Report ---
PROCEDURE: Thoracic Spine 2 View INDICATIONS: BACK PAIN TECHNIQUE: 3 views of the thoracic spine were acquired. COMPARISON: None. FINDINGS: Bones: No fractures or dislocations. No suspicious bony lesions. 12 pairs of ribs are noted, and a ppear intact where visualized. Soft tissues: No paravertebral stripe thickening. IMPRESSION: Thoracic spine without acute radiographic abnormalities or malalignment. Reviewed by: Tez Callahan MD on 02/12/2020 9:23 PM PDT Approved by: Tez Callahan MD on 02/12/2020 9:23 PM PDT Station ID: [id number]
== END 2020-02-12 23:59 | disposition home or self-care (01) ==
LOC: DI.S 08:00
PROVIDERS: ATTEND Physician Assistant
DX: R93.7 Abnormal findings on diagnostic imaging of other parts of musculoskeletal system (principal)
CPT/HCPCS: 72040; 72070

== ENCOUNTER 2020-06-01 16:26 | Outpatient (CLI) | payer MEDICAID ==
--- NOTE | 2020-06-01 17:13 | XRAY Report ---
PROCEDURE: Shoulder 2 View LT INDICATIONS: CHRONIC LEFT SHOULDER PAIN TECHNIQUE: 3 views of the shoulder were acquired. COMPARISON: None. FINDINGS: Bones: No fractures or dislocations. Moderate acromioclavicular joint and glenohumeral joint osteoa rthritic changes are seen. No suspicious bony lesions. Visualized ribs appear intact. Soft tissues: No suspicious soft tissue calcifications. IMPRESSION: Moderate left shoulder joint osteoarthritis. No acute fracture or dislocation. Reviewed by: Fritz Barnett MD on 06/01/2020 5:12 PM PST Approved by: Fritz Barnett MD on 06/01/2020 5:12 PM PST Station ID: [id number]
== END 2020-06-01 23:59 | disposition home or self-care (01) ==
LOC: DI.S 16:26
PROVIDERS: ATTEND Physician Assistant
DX: M19.012 Primary osteoarthritis, left shoulder (principal)

== ENCOUNTER 2020-09-06 12:37 | Outpatient (CLI) | payer MEDICAID ==
[2020-09-06 15:39] LABS: ALBUMIN/GLOBULIN RATIO 1.6 (1.0-2.2); ALKALINE PHOSPHATASE 58 IU/L (42-121); ALT ALANINE AMINOTRANSFERASE 20 IU/L (10-60); AST ASPARTATE AMINOTRANSFERASE 18 IU/L (10-42); BILIRUBIN,TOTAL 0.6 mg/dL (0.2-1.0); BUN - BLOOD UREA NITROGEN 15 mg/dL (6-20); CALCIUM 9.7 mg/dL (8.5-10.3); CARBON DIOXIDE - CO2 20 mmol/L (21-32); CHLORIDE 104 mmol/L (101-111); CHOL/HDL RATIO 3.8 (<4.4); CHOLESTEROL 343 mg/dL; GFR - MDRD 58 (>89); GLUCOSE 72 mg/dL (70-100); HDL CHOLESTEROL 90 mg/dL; LDL CHOLESTEROL,CALCULATED 226 mg/dL; LDL/HDL RATIO 2.5 (<4.4); POTASSIUM 4.3 mmol/L (3.5-5.0); SODIUM 138 mmol/L (135-145); TOTAL PROTEIN 8.1 g/dL (6.7-8.2); TRIGLYCERIDES 135 mg/dL; VLDL CHOLESTEROL 27 mg/dL
[2020-09-06 15:47] LABS: THYROID STIMULATING HORMONE 0.96 uIU/mL (0.34-5.60)
[2020-09-06 18:27] LABS: BASOPHILS # (AUTO) 0.1 10^3/uL (0.0-0.1); BASOPHILS % (AUTO) 1.4 %; EOSINOPHILS # (AUTO) 0.3 10^3/uL (0.0-0.7); EOSINOPHILS % (AUTO) 3.9 %; HCT - HEMATOCRIT 44.1 % (37.0-47.0); HGB - HEMOGLOBIN 13.9 g/dL (12.0-16.0); LYMPHOCYTES # (AUTO) 1.9 10^3/uL (1.5-3.5); LYMPHOCYTES % (AUTO) 29.6 %; MEAN CORPUSCULAR HEMOGLOBIN 29.3 pg (27.0-31.0); MEAN CORPUSCULAR HGB CONC 31.5 g/dL (32.0-36.0); MEAN PLATELET VOLUME 10.5 fL (7.9-10.8); MONOCYTES # (AUTO) 0.5 10^3/uL (0.0-1.0); MONOCYTES % (AUTO) 7.5 %; NEUTROPHILS # (AUTO) 3.6 10^3/uL (1.5-6.6); NEUTROPHILS % (AUTO) 56.8 %; PLT - PLATELET COUNT 323 10^3/uL (130-450); RED BLOOD COUNT 4.74 10^6/uL (4.20-5.40); RED CELL DISTRIBUTION WIDTH 12.9 % (12.0-15.0); WHITE BLOOD COUNT 6.4 x10^3/uL (4.8-10.8)
== END 2020-09-06 12:38 | disposition home or self-care (01) ==
LOC: LAB.S 12:37
PROVIDERS: ATTEND Registered Nurse
DX: I10 Essential (primary) hypertension (principal); N28.9 Disorder of kidney and ureter, unspecified; E78.2 Mixed hyperlipidemia; R73.01 Impaired fasting glucose; F33.1 Major depressive disorder, recurrent, moderate
CPT/HCPCS: 36415; 80050; 80061; 83721

== ENCOUNTER 2021-05-10 08:00 | Outpatient (CLI) | payer MEDICAID | END 2021-05-10 23:59 | LOC: LAB.S 08:00 | PROVIDERS: ATTEND Physician Assistant Medical | DX: R05.9 Cough, unspecified (principal); Z20.822 Contact with and (suspected) exposure to COVID-19 | CPT/HCPCS: 87275; 87276 ==

== ENCOUNTER 2023-12-04 05:00 | Emergency (ER) | payer MEDICAID ==
[2023-12-04 05:17] VITALS: BP 135/62; O2SAT 99
--- NOTE | 2023-12-04 05:41 | ED Physician Documentation ---
PD HPI SKIN - Stated complaint Stated Complaint: CAT STRATCH/BITES - Chief complaint Chief Complaint: Laceration - History obtained from History obtained from: Patient - Additional information Additional information: Patient presents for scratches over her face and hands. Her cat was caught in blinds and while trying to free her From the blinds the cat bit and scratched her face and hands. Cat is utd on vaccinations. She states that she called the nursing advice line and they told her to come in for evaluation,. Review of Systems Constitutional: denies: Fever, Chills GI: denies: Abdominal Pain, Abdominal Swelling, Nausea, Vomiting, Constipation, Diarrhea : denies: Dysuria, Frequency, Hesitancy Skin: reports: Abrasion (s), Bite / sting. denies: Rash, Lesions, Laceration (s) PD PAST MEDICAL HISTORY - Past Medical History Past Medical History: Yes Cardiovascular: None Endocrine/Autoimmune: None GI: None Psych: Depression, Anxiety Musculoskeletal: Chronic back pain - Past Surgical History Past Surgical History: Yes - Present Medications Home Medications: Ambulatory Orders Medication Instructions Recorded Confirmed Amox/Clav 875/125 [Augmentin] 1 each PO Q12H #20 tablet 12/04/23 - Allergies Allergies/Adverse Reactions: Allergies Allergy/AdvReac Type Severity Reaction Status Date / Time No Known Drug Allergies Allergy Verified 12/04/23 05:11 - Social History Does the pt smoke?: Yes Smoking Status: Current every day smoker Does the pt drink ETOH?: Yes Does the pt have substance abuse?: No - Immunizations Immunizations are current?: Yes - POLST Patient has POLST: No PD ED PE NORMAL - Vitals Vital signs reviewed: Yes - General General: Alert and oriented X 3, No acute distress, Well developed/nourished - Respiratory Respiratory: No respiratory distress - Derm Derm: Warm and dry, Other (scattered abrasions over face, arms. No large lacerations) - Neuro Neuro: Alert and oriented X 3, research biostatistician 2-12 intact, No motor deficit, Normal speech Results - Vitals Vitals: Oxygen O2 Source Room air PD Medical Decision Making - ED course Complexity details: re-evaluated patient, considered differential, d/w patient ED course: Scattered abrasions over hands and face from accidental pet injury. Animal is up-to-date on their vaccinations. Patient states that she did not know if she was up-to-date on her tetanus vaccinations, however in her chart we show that she is up-to-date. Wounds cleaned, dressed, antibiotic sent to pharmacy. Departure - Departure Disposition: 01 Home, Self Care Clinical Impression: Cat scratch Condition: Stable Instructions: ED Bite Cat Prescriptions: Amox/Clav 875/125 [Augmentin] 1 each PO Q12H #20 tablet Comments: Finish all of your antibiotics even if you feel improved to prevent infection. You are up-to-date on your tetanus shot. If you notice redness, drainage, swelling of your face or fingers please return for repeat evaluation. Forms: PCP List Discharge Date/Time: 12/04/23 05:53
== END 2023-12-04 05:53 | disposition home or self-care (01) ==
LOC: ED 05:00
DX: S60.519A Abrasion of unspecified hand, initial encounter (principal); S00.81XA Abrasion of other part of head, initial encounter; W55.03XA Scratched by cat, initial encounter
CPT/HCPCS: 99283